=== PATIENT | male | born 1990 | race Caucasian/White ===

== ENCOUNTER 2017-07-08 06:25 | Emergency (ER) | payer BC ==
[2017-07-08 06:33] VITALS: BP 141/87
[2017-07-08 06:51] LABS: BASOPHILS % (AUTO) 0.7 %; EOSINOPHILS # (AUTO) 0.4 10^3/uL (0.0-0.7); EOSINOPHILS % (AUTO) 5.8 %; HCT - HEMATOCRIT 42.8 % (42.0-52.0); LYMPHOCYTES # (AUTO) 1.9 10^3/uL (1.5-3.5); LYMPHOCYTES % (AUTO) 27.9 %; MEAN CORPUSCULAR HEMOGLOBIN 33.8 pg (27.0-31.0); MEAN CORPUSCULAR HGB CONC 35.1 g/dL (32.0-36.0); MEAN CORPUSCULAR VOLUME 96.1 fL (80.0-94.0); MEAN PLATELET VOLUME 8.6 fL (7.4-11.4); MONOCYTES # (AUTO) 0.5 10^3/uL (0.0-1.0); MONOCYTES % (AUTO) 7.9 %; NEUTROPHILS # (AUTO) 3.9 10^3/uL (1.5-6.6); NEUTROPHILS % (AUTO) 57.7 %; RED BLOOD COUNT 4.46 10^6/uL (4.70-6.10); RED CELL DISTRIBUTION WIDTH 12.9 % (12.0-15.0); UNCORRECTED WHITE BLOOD COUNT 6.7 x10^3/uL; WHITE BLOOD COUNT 6.7 x10^3/uL (4.8-10.8)
[2017-07-08 06:52] LABS: BILIRUBIN,URINE NEGATIVE (NEGATIVE)
[2017-07-08 07:00] LABS: UA CHARGE (STRIP ONLY) YES; UR CULTURE IF IND NOT INDICATED
[2017-07-08 07:03] LABS: ALBUMIN/GLOBULIN RATIO 1.5 (1.0-2.2); BILIRUBIN,TOTAL 0.4 mg/dL (0.2-1.0); CALCIUM 9.5 mg/dL (8.5-10.3); CREATININE 1.1 mg/dL (0.6-1.2); POTASSIUM 3.5 mmol/L (3.5-5.0)
--- NOTE | 2017-07-08 07:25 | Ultrasound Preliminary Report ---
Exam: US TESTICLE W/DOPPLER LIMITED IMPRESSION: 1. Normal ultrasound of the testes. No testicular masses . No evidence of torsion. [facility] SITE ID: [id number]
--- NOTE | 2017-07-08 07:28 | Ultrasound Report ---
EXAM: SCROTAL ULTRASOUND EXAM DATE: 07/08/2017 07:16 AM. CLINICAL HISTORY: Testicular pain, left greater than right. COMPARISON: None. TECHNIQUE: Real-time scanning was performed with static images obtained. Both color-flow and Doppler spectral analysis were utilized. FINDINGS: Right: Testis: 4 x 1.8 x 2.6 cm. Normal size and echotexture. No mass, calcification, or abnormal blood flow . Epididymis: 0.9 cm. Normal size and echotexture. No mass or abnormal blood flow. Hydrocele: None. Varicocele: None. Left: Testis: 4.3 x 1.9 x 2.8 cm. Normal size and echotexture. No mass, calcification, or abnormal blood fl ow. Epididymis: 1.0 cm. Normal size and echotexture. No mass or abnormal blood flow. Hydrocele: None. Varicocele: None. IMPRESSION: 1. Normal ultrasound of the testes. No testicular masses . No evidence of torsion. [facility] Referring Provider Line: [phone] SITE ID: [id number]
--- NOTE | 2017-07-08 07:41 | ED Physician Documentation ---
History of Present Illness - Stated complaint Stated Complaint: MALE - Chief complaint Chief Complaint: Abd Pain - Additonal information Additional information: hx from pt 27 malke to ER with issues burnin penil pain, a warm sensation of discomfort the testes yasmin, some dripping s/p urination, mild rash to inner thighs seen at dx possible shingles, rx vicodin seen in ER and cultures were done and sent but not run apparently sx still persist so he is back Review of Systems Constitutional: denies: Fever GI: denies: Abdominal Pain, Vomiting : reports: Dysuria, Discharge, Testicular pain Skin: reports: Rash Immunocompromised: denies: Immunocompromised PD PAST MEDICAL HISTORY - Past Medical History Respiratory: Asthma Psych: Other - Past Surgical History Past Surgical History: No - Present Medications Home Medications: Ambulatory Orders Medication Instructions Recorded Confirmed No Known Home Medications [No 07/05/17 07/05/17 Known Home Medications] - Allergies Allergies/Adverse Reactions: Allergies Allergy/AdvReac Type Severity Reaction Status Date / Time No Known Drug Allergies Allergy Verified 07/05/17 02:02 - Social History Does the pt smoke?: No Smoking Status: Never smoker Does the pt drink ETOH?: Yes Does the pt have substance abuse?: No - Immunizations Immunizations are current?: Yes - POLST Patient has POLST: No PD ED PE NORMAL - Vitals Vital signs reviewed: Yes - Neck Neck: Supple, no meningeal sign - Cardiac Cardiac: RRR - Respiratory Respiratory: No respiratory distress, Clear bilaterally - Abdomen Abdomen: Soft, Non tender - Male Male : Other (uncirc, no penile lesions, no dc on exam, no erythema, testes desc yasmin, nl lie, + cremasteric, slight erythematous rash to upper inner thighs yasmin but no vesicles, swabbed for HSV and GC chlamydia) - Neuro Neuro: Alert and oriented X 3 Results - Vitals Vitals: Vital Signs - 24 hr 07/08/17 06:29 Temperature 36.9 C Heart Rate 84 Respiratory 18 Rate Blood Pressure 141/87 H O2 Saturation 99 Oxygen O2 Source Room air - Labs Labs: Laboratory Tests 07/08/17 07/08/17 07/08/17 06:35 06:44 06:44 WBC 6.7 RBC 4.46 L Hgb 15.0 Hct 42.8 MCV 96.1 H MCH 33.8 H MCHC 35.1 RDW 12.9 Plt Count 208 MPV 8.6 Neut # 3.9 Lymph # 1.9 [place] # 0.5 Eos # 0.4 Baso # 0.0 Absolute Nucleated RBC 0.00 Nucleated RBC % 0.0 Sodium 139 Potassium 3.5 Chloride 104 Carbon Dioxide 25 Anion Gap 10.0 BUN 14 Creatinine 1.1 Estimated GFR (MDRD) 79 L Glucose 102 H Calcium 9.5 Total Bilirubin 0.4 AST 73 H ALT 146 H Alkaline Phosphatase 77 Total Protein 8.0 Albumin 4.8 Globulin 3.2 Albumin/Globulin Ratio 1.5 Lipase 32 Urine Color YELLOW Urine Clarity CLEAR Urine pH 6.0 Ur Specific Rev[place] >=1.030 H Urine Protein NEGATIVE Urine Glucose (UA) NEGATIVE Urine Ketones TRACE Urine Occult Blood NEGATIVE Urine Nitrite NEGATIVE Urine Bilirubin NEGATIVE Urine Urobilinogen 0.2 (NORMAL) Ur Leukocyte Esterase NEGATIVE Ur Microscopic Review NOT INDICATED Urine Culture Comments NOT INDICATED - Rads (name of study) testicular ultrasound Radiology: See rad report (nl, no masses, no torsion) Departure - Departure Disposition: 01 Home, Self Care Clinical Impression: Urethritis Condition: Good Instructions: ED Urethritis Infec Vs Inflam Male Follow-Up: [facility] [Provider Group] [facility] [Provider Group] (for a urology appointment) Comments: The urine test was normal Your blood work was normal The culture swabs will take about 3 days to be resulted - we will call you if you need any change in treatment based on the results Until we get the cultures back, it is difficult to determine if the urethritis is infections or inflammatory - so we treated you with antibiotics - no further doses should be needed. For the rash on your thighs apply the cream I prescribed twice a day until better Follow up with [facility] - both as an ER follow up and to establish care - you need to call to schedule (and please have them recheck your blood pressure, it was high today) If the symptoms persist you can also make an appointment with the urologist - call the number I provided Forms: Activity restrictions
[2017-07-08] MEDS ORDERED: AZITHROMYCIN 250 MG TABLET PO STA (07:46)
[2017-07-08] MEDS ORDERED: cefTRIAXone 250 MG VIAL IM STA (07:46)
[2017-07-08] MEDS ORDERED: AZITHROMYCIN 250 MG TABLET PO ONE (07:55)
[2017-07-08] MEDS ORDERED: LIDOCAINE 1% 2 ML VIAL ONE (07:56)
[2017-07-08] MEDS ORDERED: cefTRIAXone 250 MG VIAL ONE (07:56)
== END 2017-07-08 08:12 | disposition home or self-care (01) ==
LOC: ED 06:25
DX: N34.2 Other urethritis (principal); R21 Rash and other nonspecific skin eruption
CPT/HCPCS: 36415; 76870; 80053; 81003; 83690; 85025; 87491; 87529; 87591; 93976; 96372; 99283; A9270; 81001; 87086

== ENCOUNTER 2017-11-04 14:52 | Outpatient (CLI) | payer BC | END 2017-11-04 14:53 | disposition home or self-care (01) | LOC: SC 14:52 | PROVIDERS: ATTEND Internal Medicine Pulmonary Disease | DX: G47.10 Hypersomnia, unspecified (principal) | CPT/HCPCS: 99203; 99212 ==

== ENCOUNTER 2019-01-25 20:55 | Emergency (ER) | payer BC ==
[2019-01-25 21:01] VITALS: BP 160/92
--- NOTE | 2019-01-25 21:30 | ED Physician Documentation ---
PD HPI HEENT - Stated complaint Stated Complaint: EAR PX - Chief complaint Chief Complaint: Heent - History obtained from History obtained from: Patient - History of Present Illness Timing - onset: How many months ago (2) Timing - details: Gradual onset, Constant Pain level now: 2 Location: Left ear Improves: Nothing Associated symptoms: No: Fever, Congestion, Rhinorrhea, Unable to swallow, Cough Recently seen: Clinic (went to walk in clinic 2 days ago, rx flonase and sudefed) Review of Systems Constitutional: reports: Reviewed and negative Ears: reports: Loss of hearing, Ear pain. denies: Drainage/discharge Nose: reports: Reviewed and negative PD PAST MEDICAL HISTORY - Past Medical History Respiratory: Asthma Psych: Other - Past Surgical History Past Surgical History: No - Present Medications Home Medications: Ambulatory Orders Medication Instructions Recorded Confirmed Albuterol Sulfate [Albuterol 8.5 gm IH QID PRN 01/25/19 01/25/19 Sulfate Hfa] predniSONE [Prednisone] 40 mg PO DAILY 3 Days #6 tablet 01/25/19 - Allergies Allergies/Adverse Reactions: Allergies Allergy/AdvReac Type Severity Reaction Status Date / Time No Known Drug Allergies Allergy Verified 01/25/19 21:01 - Social History Does the pt smoke?: No Smoking Status: Never smoker Does the pt drink ETOH?: Yes Does the pt have substance abuse?: No - Immunizations Immunizations are current?: Yes - POLST Patient has POLST: No PD ED PE NORMAL - Vitals Vital signs reviewed: Yes - General General: Alert and oriented X 3, No acute distress, Well developed/nourished - HEENT HEENT: Moist mucous membranes, Pharynx benign PD ED PE EXPANDED - HEENT HEENT: L TM dull Results - Vitals Vitals: Oxygen O2 Source Room air PD MEDICAL DECISION MAKING - ED course Complexity details: considered differential, d/w patient Departure - Departure Disposition: Home, Self Care Clinical Impression: Ear pain, left Condition: Good Instructions: ED Otitis Media Serous Adult Follow-Up: [facility] [Provider Group] [facility] [Provider Group] Prescriptions: predniSONE [Prednisone] 40 mg PO DAILY 3 Days #6 tablet Discharge Date/Time: 01/25/19 21:52
[2019-01-25] MEDS ORDERED: predniSONE 20 MG TABLET PO STA (21:44)
== END 2019-01-25 21:52 | disposition home or self-care (01) ==
LOC: ED 20:55
DX: H92.02 Otalgia, left ear (principal)
CPT/HCPCS: 99283; J7512